=== PATIENT | female | born 1995 | race Caucasian/White ===

== ENCOUNTER 2017-07-08 19:39 | Emergency (ER) | payer OTHER ==
[2017-07-08 19:45] VITALS: BP 108/71; PULSE 58; RESP 14; TEMP 98.6; O2SAT 96
--- NOTE | 2017-07-08 19:48 | EDPHY ---
H & P Stated Complaint: dropped weight on L foot at 1800 Time Seen by Provider: 07/08/17 19:48 HPI/ROS: HPI: This is a 21-year-old female presents with Chief Complaint: dropped weight on L foot at 1800 Location: Left foot Quality: Injury Duration: 1-2 hours prior to arrival Signs and Symptoms: No bleeding, no radiation, no numbness, no weakness, no tingling, no incontinence, + decreased range of motion, + swelling, + pain Timing: Sudden Severity: 03/22 Context: Patient reports that she was lifting weights barefoot when she was transporting a 25 lb weight onto the rack and accidentally dropped it directly onto her left foot with immediate severe constant pain and inability to bear weight. She noticed immediate swelling and bruising of her 4th and 5th toes. Denies paresthesias. Fifth toe has decreased range of flexion. She applied ice and drove herself to the emergency room. 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 Modifying Factors: Ice Comment: ROS: see HPI Constitutional: No fever, no chills, no weight loss Eyes: No blurred vision Respiratory: No shortness of breath, no cough Cardiovascular: No chest pain Gastrointestinal: No nausea, no vomiting no diarrhea Genitourinary: No dysuria Extremities: No myalgias Neurologic: No weakness, no numbness Skin: No rashes Hematologic: No bruising, no bleeding MEDICAL/SURGICAL/SOCIAL HISTORY: Medical history: Generally healthy. Does not take any regular medications. Surgical history: Denies Social history: student CONSTITUTIONAL: Pleasant young adult white female, awake and alert, no obvious distress HEENT: Atraumatic and normocephalic, PERRL, EOMI. Tympanic membranes clear. Oropharynx clear, no exudate and moist pink mucosa. Airway patent. No lymphadenopathy. No meningismus. Cardiovascular: Normal S1/S2, regular rate, regular rhythm, without murmur rub or gallop. PULMONARY/CHEST: Symmetrical and nontender. Clear to auscultation bilaterally. Good air movement. No accessory muscle usage. ABDOMEN: Soft, nondistended, nontender, no rebound, no guarding, no peritoneal signs, no masses or organomegaly. No CVAT. EXTREMITIES: 2/2 pedal pulses, Left Ankle; Plantar flexion to 50, dorsiflexion to 20. Foot inversion to 35 degree. no ligament pain. Achilles tendon intact. 4th and 5th toes at MTP joint show ecchymosis and mild swelling. 4th toe has full flexion and extension. Fifth toe has decreased flexion extension. Light touch sensation intact. Strength 5/5. no deformities , no clubbing, no cyanosis or edema. NEUROLOGICAL: no focal neuro deficits. GCS 15. SKIN: Warm and dry, no erythema. no rash. Good capillary refill. Source: Patient Exam Limitations: No limitations - Personal History LMP (Females 10-55): 1-7 Days Ago Current Tetanus/Diphtheria Vaccine: Unsure Current Tetanus Diphtheria and Acellular Pertussis (TDAP): Unsure - Medical/Surgical History Hx Asthma: No Hx Chronic Respiratory Disease: No Hx Diabetes: No Hx Cardiac Disease: No Hx Renal Disease: No Hx Cirrhosis: No Hx Alcoholism: No Hx HIV/AIDS: No Hx Splenectomy or Spleen Trauma: No Other PMH: denies - Social History Smoking Status: Never smoked Constitutional: Initial Vital Signs Temperature (C) 37.0 C 07/08/17 19:42 Heart Rate 58 L 07/08/17 19:42 Respiratory Rate 14 07/08/17 19:42 Blood Pressure 108/71 07/08/17 19:42 O2 Sat (%) 96 07/08/17 19:42 O2 Delivery Mode Room Air Allergies/Adverse Reactions: No Known Allergies Allergy (Unverified 07/08/17 19:45) Home Medications: Medication Instructions Recorded NK [No Known Home Meds] 07/08/17 Medical Decision Making - Diagnostics Imaging Results: Imaging Impressions Foot X-Ray 07/08/17 19:47 Impression: There is no acute fracture identified. ED Course/Re-evaluation: Left foot and oral medications ordered Given ibuprofen and Ultram, ice pack applied. Reviewed x-rays via PACs and shows no acute fracture/dislocation Given orthotic shoe, crutches, weight-bearing as tolerated No signs of neurovascular compromise/tenting of skin/compartment syndrome/ extremities and joints examined above and below area of concern and are neurovascularly intact. Differential Diagnosis: Differential diagnosis includes but is limited to proximal phalanx fracture, nerve injury, ligament injury, contusion. - Data Points Medications Given: Discontinued Medications Ibuprofen (Motrin) 800 mg PO EDNOW ONE Stop: 07/08/17 19:55 Last Admin: 07/08/17 20:06 Dose: Not Given Ibuprofen (Motrin) 400 mg PO EDNOW ONE Stop: 07/08/17 20:06 Last Admin: 07/08/17 20:06 Dose: 400 mg Tramadol HCl (Ultram) 50 mg PO EDNOW ONE Stop: 07/08/17 19:55 Last Admin: 07/08/17 20:05 Dose: 50 mg Departure - Departure Disposition: Home, Routine, Self-Care Clinical Impression: Contusion of left foot including toes Qualifiers: Encounter type: initial encounter Qualified Code(s): S90.32XA - Contusion of left foot, initial encounter Condition: Good Instructions: Foot Contusion (ED) Additional Instructions: Avoid any strenuous physical activities until pain free. Wear orthotic shoe. Use crutches and advance weight-bearing as tolerated. Take ibuprofen 600-800 mg every 6-8 hours with food as needed for pain and inflammation. Apply ice for 30 minutes at a time; 2-3 times per day for the next 1-2 days. Follow up with Orthopedics in 5-7 days at which time they will evaluate and recommend with you if conservative management versus surgery is indicated. The x-rays obtained in the emergency department today demonstrate no evidence of an obvious fracture. Sometimes fractures are not obvious on the initial set of x-rays performed in the ED. For this reason, you should have repeat x-rays performed in 7-10 days if you are having any pain exclude the possibility of an occult fracture. Referrals: Calvin Fregoso MD [Medical Doctor] - As per Instructions Stand Alone Forms: Physical Education Excuse
[2017-07-08] MEDS ORDERED: IBUPROFEN 800 MG TAB PO ONE (19:54)
[2017-07-08] MEDS ORDERED: traMADol 50 MG TAB PO ONE (19:54)
[2017-07-08] MEDS ORDERED: IBUPROFEN 200 MG TAB PO ONE ×2 (20:01→20:05)
== END 2017-07-08 20:40 | disposition home or self-care (01) ==
DX: S90.32XA Contusion of left foot, initial encounter (principal); W20.8XXA Other cause of strike by thrown, projected or falling object, initial encounter
CPT/HCPCS: L3260